=== PATIENT | male | born 1985 | race Caucasian/White ===

== ENCOUNTER 2017-02-01 13:06 | Emergency (ER) | payer SELFPAY ==
[~2017-02-01] VITALS: Ht 167.6 cm; Wt 63.6 kg
[2017-02-01 13:10] VITALS: BP 117/75; TEMP 98.6
[2017-02-01 15:41] LABS: BASO # 0.1 (0.0-0.2); BASO % 0.4 % (0.0-2.0); EOS # 0.2 (0.0-0.7); EOS % 0.9 % (0-4.0); GRAN % 85.7 % (42.2-75.2); HEMOGLOBIN 17.7 g/dl (13.5-18.0); LYMPH # 0.9 (1.2-3.4); LYMPH % 5.8 % (20.0-51.0); MEAN CELL VOLUME 93 fl (80.0-100.0); MEAN CORPUSCULAR HEMOGLOBIN 33 pg (27.0-31.0); MEAN CORPUSCULAR HGB CONC 35 g/dl (33.0-37.0); MEAN PLATELET VOLUME 9.7 fl (7.4-10.4); MONO # 1.1 (0.1-0.6); MONO % 6.6 % (1.7-9.3); PLATELET COUNT 218 K/mm3 (130-400); WHITE BLOOD COUNT 16.3 K/mm3 (4.8-10.8)
[2017-02-01] MEDS ORDERED: PHENERGAN 25 TA25 MG PO (15:44)
[2017-02-01 16:00] LABS: ADJUSTED CALCIUM 9.3 mg/dL (8.4-10.2); ALBUMIN 4.4 gm/dL (3.5-5.0); BILIRUBIN,TOTAL 0.7 mg/dL (0.0-1.0); CALCIUM 9.6 mg/dL (8.4-10.2); CREATININE, serum 0.88 mg/dL (0.66-1.25); POTASSIUM 3.8 mmol/L (3.4-5.0); TOTAL PROTEIN 7.7 gm/dL (6.4-8.2)
[2017-02-01 16:32] VITALS: PULSE 68
== END 2017-02-01 16:33 | disposition home or self-care (01) ==
LOC: COL.ER 13:06
PROVIDERS: Emergency Medicine
DX: K52.9 Noninfective gastroenteritis and colitis, unspecified (principal)
CPT/HCPCS: J1170; J2550; J7030

== ENCOUNTER 2018-04-30 05:55 | Emergency (ER) | payer SELFPAY ==
[~2018-04-30] VITALS: Ht 170.2 cm; Wt 65.9 kg
[~2018-04-30 05:55] MED LIST: PHENERGAN 25 TA25 MG PO
[2018-04-30 05:59] VITALS: BP 127/84; TEMP 98.8
[2018-04-30] MEDS ORDERED: NORCO 325 MG-51 TAB PO (06:18)
[2018-04-30] MEDS ORDERED: CLEOCIN HCL300 MG PO ×3 (06:18→07:26)
[2018-04-30 07:36] VITALS: PULSE 74
== END 2018-04-30 07:38 | disposition home or self-care (01) ==
LOC: COL.ER 05:55
DX: K02.9 Dental caries, unspecified (principal); F17.210 Nicotine dependence, cigarettes, uncomplicated
CPT/HCPCS: J1885

== ENCOUNTER 2018-06-16 02:52 | Emergency (ER) | payer SELFPAY ==
[~2018-06-16] VITALS: Ht 167.6 cm; Wt 59.1 kg
[~2018-06-16 02:52] MED LIST changes: +CLEOCIN HCL300 MG PO; +NORCO 325 MG-51 TAB PO
[2018-06-16 02:55] VITALS: BP 125/63; TEMP 98.4
[2018-06-16] MEDS ORDERED: CLEOCIN HCL300 MG PO (03:15)
[2018-06-16 03:25] VITALS: PULSE 62
== END 2018-06-16 03:29 | disposition home or self-care (01) ==
LOC: COL.ER 02:52
DX: K02.9 Dental caries, unspecified (principal)

== ENCOUNTER 2018-07-11 22:28 | Emergency (ER) | payer SELFPAY ==
[~2018-07-11] VITALS: Ht 167.6 cm; Wt 63.6 kg
[2018-07-11 22:35] VITALS: BP 144/89
[2018-07-11] MEDS ORDERED: CLEOCIN HCL300 MG PO (23:07)
[2018-07-11 23:10] VITALS: PULSE 58; TEMP 98.9
== END 2018-07-11 23:10 | disposition home or self-care (01) ==
LOC: COL.ER 22:28
DX: K02.9 Dental caries, unspecified (principal)